=== PATIENT | female | born 1960 | race Caucasian/White ===

== ENCOUNTER 2018-11-04 14:08 | Inpatient (IN) | payer MEDICARE, MEDICAID ==
[~2018-11-04] VITALS: Ht 165.1 cm; Wt 59.0 kg
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
[2018-11-04] MEDS ORDERED: TRAZ-182 PO (15:14)
[2018-11-04 15:38] LABS: BASOPHILS % (AUTO) 0.8 % (0.0-2.0); EOSINOPHILS % (AUTO) 6.4 % (0.0-6.0); HEMATOCRIT 36 % (33-45); HEMOGLOBIN 11.7 g/dL (11.5-14.8); LYMPHOCYTES # (AUTO) 1.6 /CMM (0.8-4.8); LYMPHOCYTES % (AUTO) 32.4 % (20.0-44.0); MEAN CORPUSCULAR HGB CONC 33 g/dl (31.0-36.0); MEAN CORPUSCULAR VOLUME 93 fL (82-100); MONOCYTES # (AUTO) 0.5 /CMM (0.1-1.30); MONOCYTES % (AUTO) 9.1 % (2.0-12.0); NEUTROPHILS # (AUTO) 2.6 /CMM (1.8-8.9); NEUTROPHILS % (AUTO) 51.3 % (43.0-81.0); PLATELET COUNT (AUTO) 354 /CMM (150-450); WHITE BLOOD COUNT (AUTO) 5.1 K/uL (4.3-11.0)
[2018-11-04 15:41] LABS: BILIRUBIN,URINE Negative (NEGATIVE); BLOOD, URINE Trace-intact Ery/uL (NEGATIVE); KETONES,URINE Negative (NEGATIVE); LEUKOCYTE ESTERASE ,URINE Negative (NEGATIVE); NITRITE, URINE Negative (NEGATIVE); PROTEIN,URINE Negative (NEGATIVE); UGLUCOSE Negative (NEGATIVE); UROBILINOGEN,URINE 0.2 EU/dL (0.2)
[2018-11-04 15:45] LABS: CALCIUM, SERUM 8.8 mg/dL (8.5-10.1); CARBON DIOXIDE 32 mmol/L (21-32); CHLORIDE 106 mmol/L (98-107); CREATININE 0.7 mg/dL (0.6-1.3); GLUCOSE 114 mg/dL (74-106); POTASSIUM 3.8 mmol/L (3.5-5.1); SODIUM SERUM 141 mmol/L (136-145); UREA NITROGEN, BLOOD 16 mg/dL (7-18)
[2018-11-04 15:45] LABS: APPEARANCE,URINE HAZY (CLEAR)
[2018-11-04 15:46] LABS: COLOR,URINE YELLOW (YELLOW)
[2018-11-04 15:50] LABS: ALANINE AMINOTRANSFERASE 121 U/L (12-78); ALBUMIN 3.6 g/dL (3.4-5.0); ALKALINE PHOSPHATASE 81 U/L (46-116); ASPARTATE AMINOTRANSFERASE 70 U/L (15-37); BILIRUBIN,DIRECT 0.1 mg/dL (0.0-0.2); BILIRUBIN,TOTAL 0.4 mg/dL (0.2-1.0); TOTAL PROTEIN, SERUM 7.7 g/dL (6.4-8.2)
[2018-11-04 15:59] LABS: ACETAMINOPHEN < 2 ug/ml (10-30); ALCOHOL, BLOOD < 3 mg/dL (0-0); SALICYLATE < 2.8 mg/dL (2.8-20.0)
[2018-11-04 16:21] LABS: BACTERIA,URINE None seen /HPF (None Seen); SQUAMOUS EPITHELIAL CELL,UR Few /HPF (None Seen); WBC,URINE 0-2 /HPF (0-3)
--- NOTE | 2018-11-04 17:12 | NUR ---
REPORT GIVEN TO CARLOS FERGUSON FOR [facility]
[2018-11-04] MEDS ORDERED: TEMAZEPAM 7.5 MG CAPSULE PO PRN (18:00)
[2018-11-04] MEDS ORDERED: MAGNESIUM HYDROXIDE 30 ML UDC PO PRN (18:00)
[2018-11-04] MEDS ORDERED: MAG HYDROX/AL HYDROX/SIMETH 30 ML UDC PO PRN (18:00)
[2018-11-04 18:38] VITALS: BP 103/66
--- NOTE | 2018-11-04 18:52 | NUR ---
Pt. arrived in the unit a gurney and transported by ER Staff. Pt. on 5150 for DTO and DTS, pt. is uncooperative to staffs, cursing, restless and irritable, v/s taken, contraband done, refused to sign the admission papers and refused for skin assessment. Dr. Banegas made aware of the admission and with orders. Will endorse to the incoming shift the completion of the admission.
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
[2018-11-05] MEDS ORDERED: OLANZAPINE 10 MG VIAL IM STA (07:58)
[2018-11-05 08:00] VITALS: BP 121/59
[2018-11-05] MEDS: GABAPENTIN 300 MG CAPSULE PO SCH ×2 (15:32→17:09)
[2018-11-05] MEDS: LORAZEPAM 0.5 MG TABLET PO PRN (15:32)
[2018-11-05] MEDS: ACETAMINOPHEN 325 MG TABLET PO PRN (15:43)
--- NOTE | 2018-11-05 15:51 | NUR ---
INATAL DISCHARGE NOTE: button station worker attempted to speak with pt however was not able to ascertain any information due to psychosis. Sw will help form a safe and proper discharge in collaboration with MD.
[2018-11-05 16:00] VITALS: BP 119/76
--- NOTE | 2018-11-05 16:30 | NUR ---
RN-CO: Patient refused her lab works.
--- NOTE | 2018-11-05 16:34 | NUR ---
RN-CO: Patient needs constant redirection. Intimidating other patients. 1:1 sitter ordered.
--- NOTE | 2018-11-05 17:05 | NUR ---
RN-CO: Patient refused EKG , enc several times but remains uncooperative.
[2018-11-05] MEDS: OLANZAPINE 5 MG/TAB.RAPDIS PO SCH (17:09)
--- NOTE | 2018-11-05 17:40 | NUR ---
RT NOTE PT REFUSED EKG AFTER ASKING A FEW TIMES. RN IS AWARE.
--- NOTE | 2018-11-05 20:00 | NUR ---
GPS RN NOTE : PT. REFUSED TO CHECK VITAL SIGNS ,ENCOURAGED EXPLAINED RISKS AND BENEFITS, BUT STILL REFUSE.
[2018-11-06] MEDS: OLANZAPINE 5 MG/TAB.RAPDIS PO SCH ×2 (08:58→17:20)
[2018-11-06] MEDS: GABAPENTIN 300 MG CAPSULE PO SCH ×3 (08:58→17:20)
[2018-11-06] MEDS: LORAZEPAM 0.5 MG TABLET PO PRN (08:59)
[2018-11-06] MEDS: ACETAMINOPHEN 325 MG TABLET PO PRN (09:26)
--- NOTE | 2018-11-06 20:00 | NUR ---
GPS RN NOTES: PT. RESTING IN HER ROOM , NOTED WHOLE IN THE WALL BEHIND THE DOOR, EGG AND SPICE MIXER ASKING TO PATIENT , HOW HAPPENED ,PT. REFUSED TO ANSWER, CHARGE NURSE AND DR. LUIS MADE AWARE .
--- NOTE | 2018-11-06 20:11 | NUR ---
GPS RN NOTE : PT. REFUSED TO CHECK VITAL SIGNS ,ENCOURAGED EXPLAINED RISKS AND BENEFITS, BUT STILL REFUSE.
--- NOTE | 2018-11-06 20:14 | NUR ---
GPS RN NOTES: PT. BEHAVIOR VERY AGGREESIVE, UNCOOPERTIVE , UNPREDICTABLE, HYPERVERBAL, ARGUING WITH STAFF MEMEBER YELLING SCREAMING, NOT FOLLOWING ANY REDIRECTION,WILL CONTINUE TO MONITOR.
--- NOTE | 2018-11-06 20:38 | NUR ---
GPS RN NOTES : PT. SEEN BY DR. LUIS , DR. LUIS D/C ATIVAN 0.5 MG, AND NEW ORDERS ATIVAN 1 MG PO Q8H PRN , NEW ORDERS NOTED AND CARRIED OUT.
[2018-11-06] MEDS: LORAZEPAM 1 MG TABLET PO PRN (20:51)
--- NOTE | 2018-11-06 20:53 | NUR ---
GPS RN NOTES: PT. BEHAVIOR VERY AGGREESIVE, UNCOOPERTIVE , UNPREDICTABLE, HYPERVERBAL, ARGUING WITH STAFF MEMEBER YELLING SCREAMING, NOT FOLLOWING ANY REDIRECTION, ATIVAN 1 MG PO PRN GIVEN,WILL CONTINUE TO MONITOR.
[2018-11-07 08:00] VITALS: BP 110/73
[2018-11-07] MEDS: LORAZEPAM 1 MG TABLET PO PRN (08:09)
[2018-11-07] MEDS: OLANZAPINE 5 MG/TAB.RAPDIS PO SCH ×2 (08:09→16:09)
[2018-11-07] MEDS: GABAPENTIN 300 MG CAPSULE PO SCH ×3 (08:09→16:08)
[2018-11-07] MEDS: ACETAMINOPHEN 325 MG TABLET PO PRN (08:09)
--- NOTE | 2018-11-07 08:14 | NUR ---
GPS RN NOTES: PT. UNCOOPERATIVE , UNPREDICTABLE, HYPERVERBAL,VERBALLY ABUSIVE, NOT FOLLOWING ANY REDIRECTION, ATIVAN 1 MG PO PRN GIVEN,WILL CONTINUE TO MONITOR.
[2018-11-07 16:00] VITALS: BP 120/76
[2018-11-08] MEDS: LORAZEPAM 1 MG TABLET PO PRN ×2 (01:09→21:25)
[2018-11-08 08:00] VITALS: BP 102/69
[2018-11-08] MEDS: OLANZAPINE 5 MG/TAB.RAPDIS PO SCH ×2 (08:38→16:04)
[2018-11-08] MEDS: GABAPENTIN 300 MG CAPSULE PO SCH ×3 (08:38→16:04)
[2018-11-08] MEDS: ACETAMINOPHEN 325 MG TABLET PO PRN ×2 (08:41→16:04)
[2018-11-08 08:52] VITALS: BP 102/69
[2018-11-08] MEDS: LITHIUM CARBONATE 150 MG CAPSULE PO SCH ×2 (13:07→21:25)
[2018-11-08 16:00] VITALS: BP 120/70
[2018-11-09 08:07] VITALS: BP 106/78
[2018-11-09] MEDS: GABAPENTIN 300 MG CAPSULE PO SCH ×3 (09:12→16:20)
[2018-11-09] MEDS: OLANZAPINE 5 MG/TAB.RAPDIS PO SCH ×2 (09:12→16:20)
[2018-11-09] MEDS: LITHIUM CARBONATE 150 MG CAPSULE PO SCH ×2 (09:12→20:01)
[2018-11-09] MEDS: ACETAMINOPHEN 325 MG TABLET PO PRN ×2 (09:17→21:39)
--- NOTE | 2018-11-09 09:17 | NUR ---
GPS/RN-NOTES PATIENT REQUESTING TYLENOL FOR GENERALIZE PAIN. TYLENOL 650 MG P.O GIVEN PRN ORDER.
--- NOTE | 2018-11-09 14:12 | NUR ---
DISCHARGE PLANNING: SW discussed pts discharge plan; pt stated she lives at [facility] Address: [address], [place] [address] and wanted to return to that facility. SW contacted facility and was unable to speak to nursing staffing coordinator or DON. SW will attempt contacting the facility at a later time.
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
--- NOTE | 2018-11-09 14:28 | NUR ---
SNF REFERRAL: SW faxed SNF referral to Leila Medellin, marketing traffic coordinator at [facility] Address: [address] [place] [address] and EVERARDO, marketing traffic coordinator at [facility] and Address: [address] [place] [address] for review.
[2018-11-09 15:13] VITALS: BP 95/66
--- NOTE | 2018-11-09 15:27 | NUR ---
SW received a call from EVERARDO, audio visual coordinator at [facility] and Address: [address] [place] [phone] and stated pt has been accepted to the facility.
--- NOTE | 2018-11-09 17:05 | NUR ---
GPS/RN-NOTES PATIENT IN THE ROOM,AWAKE,ALERT INTERACTING WITH DR. ROBERTS. NO ACUTE DISTRESS NOTED. ENDORSE TO CHARGE NURSE FOR CONTINUITY OF CARE.
[2018-11-09 19:40] VITALS: BP 112/78
[2018-11-09] MEDS: LORAZEPAM 1 MG TABLET PO PRN (21:40)
--- NOTE | 2018-11-09 21:40 | NUR ---
GPS RN NOTES: PT/ C/O ANXIOUS HYPERBARVEL RESTLESS PACING IN THE HALLWAY, ATIVAN 1 MG PO PRN GIVEN PER PT.BEHAVIOR ,WILL CONTINUE TO MONITOR.
[2018-11-10] MEDS: ACETAMINOPHEN 325 MG TABLET PO PRN (03:42)
[2018-11-10 08:00] VITALS: BP 131/84
[2018-11-10] MEDS: GABAPENTIN 300 MG CAPSULE PO SCH ×3 (08:55→16:09)
[2018-11-10] MEDS: LITHIUM CARBONATE 150 MG CAPSULE PO SCH ×2 (08:55→21:07)
[2018-11-10] MEDS: OLANZAPINE 5 MG/TAB.RAPDIS PO SCH ×2 (08:55→16:09)
[2018-11-10 16:06] VITALS: BP 113/76
--- NOTE | 2018-11-10 19:30 | NUR ---
GPS RN NOTE, RECEIVED PATIENT AWAKE AND IN ROOM NO S/S OR COMPLAINTS OF PAIN AT THIS TIME. PATIENT IS DISPLAYING NO S/S OF APPARENT DISTRESS AT THIS TIME. PATIENT BREATHING IS UNLABORED WITH EQUAL RISE AND FALL OF THE CHEST. PATIENT IS ALERT AND ORIENTED X 2 ON ROOM AIR WITH A SPO2 OF 97%. PATIENT IS MED COMPLIANT, DISORGANIZED, ANXIOUS, DEPRESSED, UNCOOPERATIVE, AND NEEDS REORIENTATION. PATIENT DENIES SUICIDE AND HOMICIDAL IDEATIONS AT THIS TIME. PATIENT ASSISTED WITH TURNING AND REPOSITIONING Q2HR AND PRN FOR COMFORT AND CIRCULATION. PATIENT HAS NO NEEDS AT THIS TIME. PATIENT EDUCATED ON THE USE OF THE CALL MAJANO. PATIENT BED SIDE RAILS ARE UP X 2 FOR SAFETY, BED IS LOCKED AND LOW. WILL CONTINUE TO MONITOR AND MAINTAIN SAFETY Q15 MIN WITH THE HELP OF STAFF.
[2018-11-10 20:11] VITALS: BP 105/70
[2018-11-11 08:00] VITALS: BP 108/63
[2018-11-11] MEDS: GABAPENTIN 300 MG CAPSULE PO SCH ×3 (08:19→16:18)
[2018-11-11] MEDS: LITHIUM CARBONATE 150 MG CAPSULE PO SCH ×2 (08:19→21:19)
[2018-11-11] MEDS: OLANZAPINE 5 MG/TAB.RAPDIS PO SCH ×2 (08:19→16:18)
--- NOTE | 2018-11-11 11:51 | NUR ---
PT. STILL REFUSING LAB DRAW FOR THE SECOND TIME.
[2018-11-11] MEDS: ACETAMINOPHEN 325 MG TABLET PO PRN (12:08)
[2018-11-11 16:00] VITALS: BP 104/71
[2018-11-12] MEDS: LORAZEPAM 1 MG TABLET PO PRN ×2 (02:13→17:24)
[2018-11-12 07:01] LABS: BASOPHILS # (AUTO) 0.1 /CMM (0.0-0.2); EOSINOPHILS % (AUTO) 4.8 % (0.0-6.0); HEMATOCRIT 36 % (33-45); HEMOGLOBIN 11.9 g/dL (11.5-14.8); MEAN CORPUSCULAR HGB CONC 33 g/dl (31.0-36.0); MEAN CORPUSCULAR VOLUME 92 fL (82-100); MONOCYTES # (AUTO) 0.7 /CMM (0.1-1.30); MONOCYTES % (AUTO) 11.3 % (2.0-12.0); NEUTROPHILS % (AUTO) 49.9 % (43.0-81.0); PLATELET COUNT (AUTO) 364 /CMM (150-450); RED BLOOD CELL COUNT(AUTO) 3.93 MIL/uL (4.0-5.2)
[2018-11-12 07:22] LABS: ALBUMIN 3.3 g/dL (3.4-5.0); BILIRUBIN,TOTAL 0.3 mg/dL (0.2-1.0); CALCIUM, SERUM 9.2 mg/dL (8.5-10.1); CREATININE 0.6 mg/dL (0.6-1.3); POTASSIUM 4.8 mmol/L (3.5-5.1); TOTAL PROTEIN, SERUM 7.3 g/dL (6.4-8.2)
[2018-11-12 08:00] VITALS: BP 100/63
[2018-11-12] MEDS: OLANZAPINE 5 MG/TAB.RAPDIS PO SCH ×2 (08:45→16:56)
[2018-11-12] MEDS: GABAPENTIN 300 MG CAPSULE PO SCH ×3 (08:45→16:56)
[2018-11-12] MEDS: LITHIUM CARBONATE 150 MG CAPSULE PO SCH ×2 (08:45→21:46)
[2018-11-12 16:00] VITALS: BP 112/68
[2018-11-12 20:00] VITALS: BP 108/73
[2018-11-13 08:00] VITALS: BP 112/70
[2018-11-13] MEDS: OLANZAPINE 5 MG/TAB.RAPDIS PO SCH ×2 (09:13→18:11)
[2018-11-13] MEDS: LITHIUM CARBONATE 150 MG CAPSULE PO SCH ×2 (09:13→21:08)
[2018-11-13] MEDS: GABAPENTIN 300 MG CAPSULE PO SCH ×3 (09:13→18:11)
[2018-11-13] MEDS: LORAZEPAM 1 MG TABLET PO PRN (11:07)
--- NOTE | 2018-11-13 11:07 | NUR ---
medicated with ativan 1 mg po for nervousness.
[2018-11-13 16:00] VITALS: BP 119/72
--- NOTE | 2018-11-13 18:41 | NUR ---
using foul language freq.
[2018-11-13 20:00] VITALS: BP 109/62
--- NOTE | 2018-11-13 21:30 | NUR ---
OFFERED TEMAZEPAM 7.5 MG CAP, PATIENT REFUSED, STATED, " WHICH ONE IS RESTORIL? OH NO! I'M OKAY, I DON'T NEED THAT."
[2018-11-14 08:00] VITALS: BP 100/63
[2018-11-14] MEDS: LITHIUM CARBONATE 150 MG CAPSULE PO SCH ×2 (08:30→21:10)
[2018-11-14] MEDS: GABAPENTIN 300 MG CAPSULE PO SCH ×3 (08:30→16:41)
[2018-11-14] MEDS: OLANZAPINE 5 MG/TAB.RAPDIS PO SCH ×2 (08:30→16:42)
[2018-11-14] MEDS: LORAZEPAM 1 MG TABLET PO PRN (15:45)
--- NOTE | 2018-11-14 15:45 | NUR ---
RN NOTES ADMINISTERED ATIVAN 1 MG PO PRN FOR ANXIETY, PER PATIENT REQUEST, V/S TAKEN BP- 104/72, P-99, CONTINUED MONITORING.
[2018-11-14 16:00] VITALS: BP 104/72
[2018-11-14 20:00] VITALS: BP 109/75
--- NOTE | 2018-11-14 20:00 | NUR ---
RN NOTES Patient refused skin assessment
--- NOTE | 2018-11-14 21:10 | NUR ---
RN NOTES Offered Temazepam 7.5mg capsule, as ordered, but patient refused. States that she doesn't need it.
[2018-11-15 08:00] VITALS: BP 103/68
--- NOTE | 2018-11-15 09:00 | NUR ---
RN-CO: DR BALL( MANAGER BUSINESS INFORMATION) SEEN AND EXAMINED THE PATIENT AND MEDICALLY CLEARED HER FOR DISCHARGE. DR ROBERTS ORDERED TO DISCONTINUE HOLD AND DISCHARGE PATIENT TODAY TO [facility]. PATIENT IS CALM AND COOPERATIVE TO CARE. NO AGGRESSION NOTED, DENIED AUDITORY AND VISUAL HALLUCINATION. DENIED SUICIDAL AND HOMICIDAL IDEATION. AWARE OF HER DISCHARGE TODAY.SHE DENEID PAIN AND DISCOMFORTS.
[2018-11-15] MEDS: LITHIUM CARBONATE 150 MG CAPSULE PO SCH (09:06)
[2018-11-15] MEDS: GABAPENTIN 300 MG CAPSULE PO SCH (09:06)
[2018-11-15] MEDS: OLANZAPINE 5 MG/TAB.RAPDIS PO SCH (09:06)
[2018-11-15] MEDS: LORAZEPAM 1 MG TABLET PO PRN (09:56)
--- NOTE | 2018-11-15 11:00 | NUR ---
RN-CO: DISCHARGE PAPERS AND EXIT CARE WERE EXPLAINED TO THE PATIENT AND SHE VERBALIZED UNDERSTANDING. ALL PATIENT'S BELONGINGS WILL BE GIVEN BACK TO HER UPON DISCHARGE.
--- NOTE | 2018-11-15 12:15 | NUR ---
RN-CO: PATIENT WAS PICKED UP BY AMBULANCE. REPORT WAS GIVEN TO RN( CAR[place]INA) IN [facility] AND EMT. VALUABLES WAS GIVEN BACK AND HER PERSONAL BELONGINGS.
--- NOTE | 2018-11-15 12:42 | NUR ---
DISCHARGE NOTE: Pt was discharged at 12:00pm via [id number] trip #[id number] to [facility] Address: [address] [place] [address] . Pts has no family to notify. Pts mood was euthymic with congruent affect. Pt denied visual/auditory hallucinations and denied suicidal/homicidal ideation. Pt will be under the care of Orthopedic Tech: Dr Vizcaino Address: [address] [facility] [address], [place] [address] [phone] and address her substance use with Psychiatrist: Dr. Betina Banegas [address], [place] [address] [phone]. For smoking cessation, patient was referred to the [employer] and [employer] [id number]. Pt will also participate in a telephone meeting with [employer] [phone] on Friday November 16, 2018 at 8:00am. The multidisciplinary exitcare form was done, printed, signed, and given to the patient.
--- NOTE | 2018-11-30 08:52 | NUR ---
15 DAY SUBSTANCE ABUSE FOLLOW UP: Pt is excluded due to D/C to SNF.
== END 2018-11-15 12:30 | DRG 885 ==
LOC: ER 14:17 → GPS 17:11
PROVIDERS: ADMIT Psychiatry & Neurology Psychosomatic Medicine; ATTEND Nurse Practitioner Acute Care
DX: F29 Unspecified psychosis not due to a substance or known physiological condition (principal); F41.9 Anxiety disorder, unspecified; F15.10 Other stimulant abuse, uncomplicated; Z88.8 Allergy status to other drugs, medicaments and biological substances; R73.9 Hyperglycemia, unspecified; R74.0 Nonspecific elevation of levels of transaminase and lactic acid dehydrogenase [LDH]; Z73.6 Limitation of activities due to disability; F20.9 Schizophrenia, unspecified; Z59.0 Homelessness; F10.10 Alcohol abuse, uncomplicated; Y90.9 Presence of alcohol in blood, level not specified
CPT/HCPCS: 36415; 80048-TC; 80053-TC; 80061-TC; 80076-TC; 80305; 81000-TC; 85025-TC; 87081-TC; G0480; J3490